=== PATIENT | male | born 1960 | race Caucasian/White ===

== ENCOUNTER 2023-11-19 01:03 | Emergency (ER) | payer BC ==
[2023-11-19] MEDS ORDERED: Amoxicillin 500 MG Cap PO ONE (01:04)
[2023-11-19] MEDS ORDERED: Acetaminophen/Codeine 300-30 MG Tab PO ONE (01:04)
== END 2023-11-19 01:45 | disposition home or self-care (01) ==
LOC: FB.ED 01:03
DX: K04.7 Periapical abscess without sinus (principal)
CPT/HCPCS: 99283; A9270